=== PATIENT | male | born 1950 | race Caucasian/White ===

== ENCOUNTER 2016-09-17 10:37 | Emergency (ER) | payer OTHER ==
[~2016-09-17] VITALS: Ht 162.6 cm; Wt 86.9 kg
[2016-09-17 13:08] LABS: HEMATOCRIT 49.9 % (38.0-50.0); MCHC 34.5 G/DL (30.0-36.0); MCV 81.3 FL (86-99); MEAN PLAT.VOLUME 11.5 uM^3 (9.0-12.4); PLATELET COUNT 168 K/uL (156-360); RBC DIS.WIDTH-CV 14.6 % (11.8-14.6); RBC DIS.WIDTH-SD 42.9 % (39-53); RED BLOOD COUNT 6.14 M/uL (4.00-5.50); WHITE BLOOD COUNT 6.7 K/uL (4.1-10.2)
[2016-09-17 13:20] LABS: CHLORIDE 108 mEq/L (99-109); POTASSIUM 4.5 mEq/L (3.7-5.4); SODIUM 141 mEq/L (136-147)
[2016-09-17 13:22] LABS: GLUCOSE 104 mg/dL (70-99)
[2016-09-17 13:23] LABS: ANION GAP 8 MEQ/L (2-14)
[2016-09-17 13:26] LABS: GFR ESTIMATE (CALCULATED) > 59 mL/min/
[2016-09-17 13:27] LABS: UREA NITROGEN (BUN) 16 mg/dL (9-23)
[2016-09-17 13:30] LABS: TROP-I INTERPRETATION NEGATIVE; TROPONIN-I 0.04 ng/mL (0.0-0.30)
[2016-09-17] MEDS ORDERED: LISINOPRIL-HCT1 EAC3 PO (13:55)
[2016-09-17 14:10] VITALS: BP 180/98
== END 2016-09-17 14:13 | disposition home or self-care (01) ==
LOC: EXP 10:37 → EME 10:37 → EXP 14:13
PROVIDERS: Emergency Medicine
DX: I10 Essential (primary) hypertension (principal); Z87.891 Personal history of nicotine dependence
CPT/HCPCS: 70450; 71020; 80048; 83880; 84484; 85027; 99281; 99284